=== PATIENT | male | born 1960 | race Caucasian/White ===

== ENCOUNTER 2019-05-18 20:37 | Emergency (ER) | payer BC ==
[~2019-05-18] VITALS: Ht 193 cm; Wt 143.4 kg
[2019-05-18 20:41] VITALS: BP 142/73
== END 2019-05-18 21:57 | disposition home or self-care (01) ==
LOC: ED 21:50
DX: S70.11XA Contusion of right thigh, initial encounter (principal); S80.01XA Contusion of right knee, initial encounter; J06.9 Acute upper respiratory infection, unspecified; X58.XXXA Exposure to other specified factors, initial encounter; Y93.89 Activity, other specified; Y92.89 Other specified places as the place of occurrence of the external cause; Y99.8 Other external cause status
CPT/HCPCS: 99283